=== PATIENT | male | born 1970 | race Caucasian/White ===

== ENCOUNTER 2018-10-22 05:36 | Day surgery (SDC) | payer BC ==
--- NOTE | 2018-10-12 19:46 | HP ---
PREOPERATIVE HISTORY AND PHYSICAL: DATE OF ADMISSION/SURGERY: 10/22/18 DATE OF OFFICE VISIT: 10/12/18 ATTENDING PHYSICIAN: Dr. Rosy Tan.* (DICTATED BY CHRISTOPHER OLMEDO) SURGERY SCHEDULED: Right knee arthroscopy, partial meniscectomy, possible chondroplasty, synovectomy, plica excision. CHIEF COMPLAINT: Right knee pain. HISTORY OF PRESENT ILLNESS: The patient is a 48-year-old male who developed right knee pain after slipping on some ice while walking his dog in May 2018. [place] a pop along the medial joint line and since then has had intermittent pain in the medial joint line of the right knee. He has occasional clicking and catching as well. Increased pain with deep bending, squatting, pivoting, and twisting. He has tried anti-inflammatories. He continues to have intermittent symptoms. PAST MEDICAL HISTORY: Benign. PAST SURGICAL HISTORY: L4 diskectomy. He has had liquid nitrogen placed on a right foot plantar wart. MEDICATIONS: He takes no regular medications. ALLERGIES: No known drug allergies. Allergy to CATS. FAMILY HISTORY: His mom with a history of diabetes and cancer. SOCIAL HISTORY: He lives with his spouse. 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 He denies use of tobacco or recreational drug use. He drinks 6 alcoholic beverages per week. REVIEW OF SYSTEMS: The patient denies recent loss of consciousness, lightheadedness, dizziness. Denies shortness of breath, chest pain, palpitations. Denies gastrointestinal or genitourinary discomfort. He states he had an upper respiratory virus last week, which is now resolved. PHYSICAL EXAMINATION GENERAL: He is alert and oriented x3, in no acute distress. Pleasant mood and appropriate affect. VITAL SIGNS: 70 inches tall, weight 155. Pulse 64, BP 126/82. HEENT: PERRLA. EOMI. NECK: Supple. LUNGS: Clear to auscultation without wheeze. HEART: Regular rate and rhythm. No murmur auscultated. ABDOMEN: Nontender, nondistended. Normoactive bowel sounds x4 quadrants. EXTREMITIES: Right lower extremity: The skin is intact. There are no abrasions or open wounds. He has a mild effusion with tenderness along the medial joint line. He has a positive Leidy's test. There is no varus or valgus instability. He has 5 degrees to 125 degrees of motion. His sensation and circulation are intact distally. DIAGNOSTIC STUDIES/LAB DATA: MRI of the right knee dated 07/20/18 shows a medial meniscal tear in the posterior horn and body. IMPRESSION: Right knee meniscal tear. PLAN: The patient is scheduled for right knee arthroscopy, partial meniscectomy , possible chondroplasty, synovectomy, plica excision scheduled [place] Dr. Tan on 10[place]22/18 [place] [facility] [place] Risks and benefits of the procedure were fully discussed with the patient today at his preoperative visit. All questions were answered. He will follow up in 10 to 14 days post-operatively. CHRISTOPHER OLMEDO [id number]/[facility] #: [id number] MTDSurinder
[~2018-10-22 05:36] MED LIST: Buffered Lidocaine 1% SYRIN* 1 ML/SYRINGE INTRADERM ONE
[2018-10-22] MEDS ORDERED: Dexamethasone IV* 4 MG/ML 1 ML (4 MG) IV SLOW PU ONE (06:00)
[2018-10-22] MEDS ORDERED: Famotidine IV* 10 MG/ML 2 ML (20 mg) IV ONE (06:00)
[2018-10-22] MEDS ORDERED: Lactated Ringers 1000 ML Bag* 1,000 ML IV SCH (06:00)
[2018-10-22] MEDS ORDERED: Dexamethasone IV* 4 MG/ML 1 ML (4 MG) ONE (06:08)
[2018-10-22] MEDS ORDERED: ceFAZolin 2 GM in NS PREMIX(*) 2 GM/100 ML BAG IVPB ONE (06:09)
[2018-10-22] MEDS ORDERED: Famotidine IV* 10 MG/ML 2 ML (20 mg) ONE (06:09)
[2018-10-22] MEDS ORDERED: Buffered Lidocaine 1% SYRIN* 1 ML/SYRINGE INTRADERM ONE (06:09)
[2018-10-22] MEDS ORDERED: EPINEPHRINE 1 MG/ML 1 ML VIAL ONE (06:59)
[2018-10-22] MEDS ORDERED: methylPREDNISolone ACETATE 80* 80 MG/ML 1 ML VIAL ONE (07:08)
[2018-10-22] MEDS ORDERED: ROPIVACAINE 5 MG/ML 30 ML BTL (0.5%) ONE (07:08)
[2018-10-22] MEDS ORDERED: Ketorolac INJ* 30 MG/ML 1 ML VIAL ONE (07:10)
[2018-10-22] MEDS ORDERED: Propofol* 10 MG/ML 20 ML BTL ONE (07:10)
[2018-10-22] MEDS ORDERED: Chloroprocaine 2%* 20 ML VIAL ONE (07:10)
[2018-10-22] MEDS ORDERED: Ondansetron INJ* 2 MG/ML VIAL ONE (07:10)
[2018-10-22] MEDS ORDERED: Phenylephrine 10 MG/ML VIAL* 1 ML VIAL ONE (07:10)
[2018-10-22] MEDS ORDERED: Midazolam* 1 MG/ML 5 ML VIAL (5 MG) ONE (07:11)
[2018-10-22] MEDS ORDERED: EPHEDrine (Pressors)* 50 MG/ML VIAL ONE (07:32)
[2018-10-22] MEDS ORDERED: DiMENhydriNATE IV* 50 MG/ML VIAL IV PUSH PRN (07:51)
[2018-10-22] MEDS ORDERED: Naloxone* 0.4 MG/ML 1 ML VIAL IV PRN (07:51)
[2018-10-22] MEDS ORDERED: fentaNYL* 50 MCG/ML 2 ML VIAL (100 MCG VIAL) IV PRN (07:51)
[2018-10-22] MEDS ORDERED: oxyCODONE/Acetamin 5/325 MG* TAB PO PRN (07:51)
[2018-10-22] MEDS ORDERED: Ondansetron INJ* 2 MG/ML VIAL IV PRN (07:51)
[2018-10-22] MEDS ORDERED: Lidocaine 2% PF * 5 ML VIAL ONE (08:14)
[2018-10-22] MEDS ORDERED: oxyCODONE/Acetamin 5/325 MG* TAB ONE (10:29)
[2018-10-22 10:58] VITALS: BP 104/72
--- NOTE | 2018-10-22 21:18 | OP ---
OPERATIVE REPORT: DATE OF OPERATION: 10/22/18 DATE OF : 70 ATTENDING SURGEON: Rosy Tan MD SUPERVISOR PHOSPHATIC FERTILIZER: CHRISTOPHER Michel Ms. did help throughout the procedure with preparation of the leg, wound retraction, manipulat ion of the knee, and wound closure. ANESTHESIOLOGIST: Dr. Munoz. ANESTHESIA: Spinal. PRE-OP DIAGNOSIS: Right knee medial meniscal tear. POST-OP DIAGNOSIS: Right knee medial meniscal tear, medial plica, mild degenerative changes. OPERATIVE PROCEDURE: Right knee arthroscopy with partial medial meniscectomy and medial plica excisi on. ESTIMATED BLOOD LOSS: Less than 25 cc. COMPLICATIONS: None. SPECIMEN: None. BRIEF HISTORY/INDICATION: Mr. Pierce is a 48-year-old gentleman who injured his right knee in [place] when he twisted the knee. Since then, he has had mechanical symptoms and pain along the medial hui nt line. He failed conservative treatment. An MRI confirmed a medial meniscal tear. Due to continue d pain and failure of conservative treatment, he elected to undergo right knee arthroscopy with parti al meniscectomy, possible chondroplasty, possible plica excision, possible synovectomy. Informed consent was obtained from the patient. He understood the risks of surgery included, but wer e not limited to bleeding, infection, damage to nearby structures, continued pain, need for further s urgery, re-tear of the meniscus, progression of arthritis, stroke, heart attack, blood clot, and deat h. He wishes to proceed. INTRAOPERATIVE FINDINGS: Intraoperatively, the patient had mild degenerative changes in the medial a nd patellofemoral compartments, these were mainly grade 2/3 Outerbridge changes and minimal. He had a large tear in the body and posterior horn of the medial meniscus, which was a long linear tear in t he white-red zone. He had a significant medial plica, which did impinge with range of motion medially along the patellofemoral joint. DESCRIPTION OF PROCEDURE: Mr. Pierce was identified in the preanesthesia unit. His right lower ext remity was marked as the correct operative side. Informed consent was signed and placed in the chart . The patient was taken to the operating room and placed under anesthesia. His right lower extremit y was prepped and draped in the usual sterile fashion. Preop time-out was made to correctly identify the patient, side and site. Appropriate perioperative antibiotics were given within 1 hour of incis ion. A 0.5 cm anterolateral portal incision was made with a 10-blade and carried down to the capsule. Tro car was introduced. As soon as the light and water sources were turned on, there was immediate visua lization of the suprapatellar pouch. A tour of the knee joint was performed. Suprapatellar pouch had no obvious abnormality. Patellofemoral compartment had some mild degenerativ e changes. There was a significant medial plica visualized, which did impinge with range of motion a long the patellofemoral joint medially. Medial gutter showed no loose body. The medial compartment s howed a large anteriorly displaced medial meniscal tear involving the posterior horn and posterior 50 % and body. This was a linear tear. The medial compartment had minimal degenerative changes. ACL a nd PCL appeared to be intact. The knee was placed in a [id number] position. Lateral meniscus blackwood d no obvious tear. Lateral compartment showed no significant degenerative changes. Lateral gutter sh owed no loose body. Under direct visualization, a medial portal incision was made with a #10 blade. A probe was introduc ed. A second tour of the knee joint was performed. No additional findings were noted. Shaver and r adiofrequency ablation wand were used to perform excision of the medial plica. The plica was excised until there was no further impingement with range of motion. Next, the straight biter and shaver were used to perform partial medial meniscectomy. This was a lar ge linear tear involving the posterior 50% of the medial meniscus mainly in the white-red zone. Furt her probing of the meniscus showed no additional tears or displaced fragments. Radiofrequency ablati on wand was used to further smooth the edge of the remaining medial meniscus. The knee was copiously irrigated with sterile saline. All instruments were removed. Incisions were closed using interrupted 3-0 nylon suture. 80 mg Depo- Medrol and 6 cc of 0.5% ropivacaine were plac ed in the knee joint. The patient's incisions were covered with Xeroform, 4x4s, and Webril. Karan wra p and cold pack were placed over this. The patient's anesthesia was reversed without difficulty. He was taken to the PACU in stable condition. Intended weightbearing will be weightbearing as tolerated . Intended DVT prophylaxis will be aspirin. He will follow up in clinic in 2 weeks' time for suture removal. [id number]/[facility] #: [id number]
== END 2018-10-22 17:01 | disposition home or self-care (01) ==
LOC: OR 05:36
PROVIDERS: ATTEND Orthopaedic Surgery Adult Reconstructive Orthopaedic Surgery
DX: S83.241A Other tear of medial meniscus, current injury, right knee, initial encounter (principal); M67.51 Plica syndrome, right knee; M17.11 Unilateral primary osteoarthritis, right knee; W00.0XXA Fall on same level due to ice and snow, initial encounter; Y93.K1 Activity, walking an animal; Y92.017 Garden or yard in single-family (private) house as the place of occurrence of the external cause
CPT/HCPCS: A9270-GY; J0690; J1040; J1100; J1885; J2250; J2400; J2405; J2704; J2795

== ENCOUNTER 2019-05-25 05:44 | Day surgery (SDC) | payer BC ==
--- NOTE | 2019-05-21 13:23 | HP ---
AMENDED REPORT NOW INCLUDES DESIGNATED COSIGNER - ESIGNED BEFORE ADJUSTMENTS HISTORY AND PHYSICAL: DATE OF ADMISSION/SURGERY: 05/25/19 DATE OF OFFICE VISIT: 05/21/19 SURGEON: Rosy Tan MD * (DICTATED BY CHRISTOPHER ELISE) PROCEDURE: Right knee arthroscopy with partial meniscectomy, possible chondroplasty, possible synovectomy, and possible plica excision. CHIEF COMPLAINT: Right knee pain. HISTORY OF PRESENT ILLNESS: Mr. Pierce is a 49-year-old gentleman with complaints of right knee pain. He has failed conservative treatment and elected to proceed with a right knee arthroscopy. PAST MEDICAL HISTORY: Asthma. PAST SURGICAL HISTORY: Right knee arthroscopy, lumbar diskectomy, and wisdom teeth extraction. MEDICATIONS: No current medications. ALLERGIES: No known drug allergies. FAMILY HISTORY: Breast cancer. SOCIAL HISTORY: He is a 49-year-old gentleman, lives with his . He does not smoke. He uses occasional marijuana. REVIEW OF SYSTEMS: A complete 14-point review of systems was reviewed with the patient. It was all negative or noncontributory. He denies history of DVT, PE , hepatitis, HIV, or anesthesia problems. PHYSICAL EXAMINATION GENERAL: He is well developed, well nourished, in no acute distress. VITAL SIGNS: He stands 70 inches tall, weighs 150 pounds. Blood pressure 124/ 70, heart rate 68. HEENT: Normocephalic, atraumatic. NECK: Supple. No palpable lymph nodes. PULMONARY: The lungs are clear to auscultation bilaterally. CARDIO: Regular rate and rhythm. Strong S1, S2. ABDOMEN: Soft, nontender, nondistended. NEUROLOGICAL: He is alert and oriented x3. MUSCULOSKELETAL: Right lower extremity: The skin is intact. There are no open wounds or abrasions. There is a qapy-mm-igajomat effusion of the right knee joint. He has some tenderness along the medial joint line. Positive Leidy's. Positive Apley's. Negative Esme's. He has a 2+ dorsalis pedis pulse. He is able to dorsiflex and plantar flex. ASSESSMENT AND PLAN: Mr. Pierce is a 49-year-old gentleman with right knee pain secondary to medial meniscus tear. He has elected to proceed with a right knee arthroscopy with partial meniscectomy, possible chondroplasty, possible synovectomy, and possible plica excision. The surgery is scheduled for with Dr. Tan. Dr. Tan discussed the risks and benefits of the surgery at today's visit and all of his questions were answered. He will follow up with Dr. Tan 2 weeks after the surgery. CHRISTOPHER ELISE [id number]/[facility] #: [id number] MTDSurinder
[2019-05-25] MEDS ORDERED: Lactated Ringers 1000 ML Bag* 1,000 ML IV SCH (06:00)
[2019-05-25] MEDS ORDERED: Buffered Lidocaine 1% SYRIN* 1 ML/SYRINGE INTRADERM ONE (06:31)
[2019-05-25] MEDS ORDERED: ceFAZolin 2 GM PREMIX in ORs 2 GM/50 ML BAG ONE (06:54)
[2019-05-25] MEDS ORDERED: ROPIVACAINE 5 MG/ML 30 ML BTL (0.5%) ONE (07:26)
[2019-05-25] MEDS ORDERED: methylPREDNISolone ACETATE 80* 80 MG/ML 1 ML VIAL ONE (07:26)
[2019-05-25] MEDS ORDERED: fentaNYL* 50 MCG/ML 2 ML VIAL (100 MCG VIAL) ONE ×3 (07:29→09:26)
[2019-05-25] MEDS ORDERED: EPHEDrine (Pressors)* 50 MG/ML VIAL ONE (07:55)
[2019-05-25] MEDS ORDERED: Ondansetron INJ* 2 MG/ML VIAL ONE (08:28)
[2019-05-25] MEDS ORDERED: Glycopyrrolate IV* 0.2 MG/ML 1 ML VIAL ONE (08:28)
[2019-05-25] MEDS ORDERED: Acetaminophen IV 1GM/100ML * 100 ML ONE (09:17)
[2019-05-25] MEDS ORDERED: Naloxone* 0.4 MG/ML 1 ML VIAL IV PRN (09:18)
[2019-05-25] MEDS ORDERED: Acetaminophen IV 1GM/100ML * 1,000 MG/100 ML VIAL IVPB ONE (09:18)
[2019-05-25] MEDS: fentaNYL* 50 MCG/ML 2 ML VIAL (100 MCG VIAL) IV PRN ×2 (09:28→09:42)
[2019-05-25 09:54] VITALS: BP 101/74
--- NOTE | 2019-05-26 17:51 | OP ---
DATE OF OPERATION: 05/25/19 [facility] DATE OF : 70 SURGEON: Rosy Tan MD COOK MANAGER: CHRISTOPHER Nicole. Ms. Feng did help throughout the procedure with preparation of the leg, wound retraction, manipulation of the knee, and wound closure. ANESTHESIOLOGIST: Dr. Tate. ANESTHESIA: General. PRE-OP DIAGNOSIS: Right knee medial meniscal tear. POST-OP DIAGNOSES: 1. Right knee medial meniscal tear. 2. Mild arthritic changes. OPERATIVE PROCEDURE: Right knee arthroscopy with partial medial meniscectomy. COMPLICATIONS: None. ESTIMATED BLOOD LOSS: Less than 25 cc. SPECIMENS: None. BRIEF HISTORY/INDICATIONS: Mr. Pierce is a 49-year-old gentleman with 3 months of an acute increase in right knee pain and mechanical symptoms. He was lifting some heavy items when he twisted his right knee and has had pain ever since. Conservative treatment failed. MRI confirmed retear of his medial meniscus, which was quite complex. Due to continued pain and decreased quality of life, the patient elected to undergo right knee arthroscopy with partial meniscectomy. Informed consent was obtained from the patient. He understood the risks of surgery included, but were not limited to bleeding, infection, damage to nearby structures, continued pain, need for further surgery, retear of the meniscus, progression of arthritis, stroke, heart attack, blood clot, and . He wished to proceed. INTRAOPERATIVE FINDINGS: Intraoperatively, the patient was noted to have a complex linear type tear involving the posterior 50% of the medial meniscus. This was in the red-white and red-red zone. He was noted to have some mild-to- moderate degenerative changes in the medial compartment. DESCRIPTION OF PROCEDURE: Mr. Pierce was identified in the preanesthesia unit. His right lower extremity was marked as the correct operative side. Informed consent was signed and placed in the chart. The patient was taken to the operating room and placed under anesthesia without difficulty. Right lower extremity was prepped and draped in the usual sterile fashion. Preop time-out was made to correctly identify the patient, side, and site. Appropriate perioperative antibiotics were given within 1 hour of incision. A 1.5 cm anterolateral portal incision was made and carried down through the capsule. Trocar was introduced. Light and water sources were turned on. There was immediate visualization of the suprapatellar pouch. A tour of the knee joint was performed. Suprapatellar pouch showed no obvious abnormalities. Patellofemoral compartment had minimal degenerative changes noted. Medial gutter showed no loose body or plica. Medial compartment showed some minimal degenerative changes. These were grade 2 and 3 Outerbridge cartilage changes along the medial femoral condyle. The posterior 50% of the medial meniscus had a significant meniscal tear with linear component and a radial component involving the white-red zone. ACL and PCL appeared to be intact. The knee was placed in a [id number]-[id number]-wblg position. Lateral compartment of the knee showed minimal degenerative changes and no obvious meniscal tear. Lateral gutter showed no obvious abnormality. Under direct visualization, a medial portal incision was made. A probe was introduced and a second tour of the knee joint was performed. There were no additional findings noted. Shaver and straight biter were used to perform partial medial meniscectomy. The torn meniscus was carefully excised until a smooth border of the medial meniscus was obtained in the white-red and red-red zone. The radiofrequency ablation wand was used to further smooth the edge of the meniscus. Further probing of the medial meniscus showed no additional tears. The knee was copiously irrigated with sterile saline. All instruments were removed. The incisions were closed with 3-0 nylon suture. Sterile Xeroform, 4x4s, and Webril were used to cover the incision. The Karan wrap and cold pack were placed over this. The patient's anesthesia was reversed without difficulty. He was taken to the PACU in stable condition. Intended weightbearing will be weightbearing as tolerated. Intended DVT prophylaxis will be aspirin. He will follow up in 2 weeks for suture removal. [id number]/[facility] #: [id number] [facility] HOSPITALSurinder
== END 2019-05-25 10:04 | disposition home or self-care (01) ==
LOC: OR 05:44
PROVIDERS: ATTEND Orthopaedic Surgery Adult Reconstructive Orthopaedic Surgery
DX: S83.241A Other tear of medial meniscus, current injury, right knee, initial encounter (principal); M25.561 Pain in right knee; M25.461 Effusion, right knee; M17.11 Unilateral primary osteoarthritis, right knee; J45.909 Unspecified asthma, uncomplicated; X50.0XXA Overexertion from strenuous movement or load, initial encounter; Y93.89 Activity, other specified; Y92.9 Unspecified place or not applicable
CPT/HCPCS: J0690; J1040; J2405; J2795; J3010